=== PATIENT | female | born 1965 | race Caucasian/White ===

== ENCOUNTER 2018-02-05 06:37 | Day surgery (SDC) | payer OTHER ==
[~2018-02-05] VITALS: Ht 160 cm; Wt 79.5 kg
[~2018-02-05 06:37] MED LIST: SODIUM CHLORIDE 0.9% 1,000 ML IV ONE
[2018-02-05] MEDS ORDERED: LIDOCAINE 4% 50 ML SOLUTION TP ONE (06:38)
[2018-02-05] MEDS ORDERED: BENZOCAINE 20% 50 MCG/SPRAY 57 GM TP ONE (06:38)
[2018-02-05] MEDS ORDERED: LIDOCAINE 2% 30 ML JELLY TP ONE (06:38)
[2018-02-05] MEDS ORDERED: ALBUTEROL SULFATE 2.5 MG/0.5 ML NEB SOLUTION NEB ONE (06:38)
[2018-02-05] MEDS ORDERED: ASCO-330 PO (07:11)
[2018-02-05] MEDS ORDERED: LORA10TA7 PO (07:11)
[2018-02-05] MEDS ORDERED: LISI-661 PO (07:11)
[2018-02-05] MEDS ORDERED: FLUT16H NASAL (07:11)
[2018-02-05] MEDS ORDERED: ALBU8.5H8 IH (07:11)
[2018-02-05] MEDS ORDERED: FERR-89 PO (07:11)
[2018-02-05] MEDS ORDERED: VITAD1000 PO (07:11)
[2018-02-05] MEDS ORDERED: MOME13HF IH (07:11)
[2018-02-05] MEDS ORDERED: MONT10TA21 PO (07:11)
[2018-02-05] MEDS ORDERED: MULT1TAB70 PO (07:11)
[2018-02-05] MEDS ORDERED: AZEL137S8 NASAL (07:11)
[2018-02-05] MEDS ORDERED: MIDAZOLAM HCL 2 MG/2 ML VIAL ONE (07:42)
[2018-02-05] MEDS ORDERED: FentaNYL CITRATE-PF 100 MCG/2 ML VIAL ONE (07:42)
[2018-02-05] MEDS ORDERED: MethylPREDNISolone SOD SUCC 125 MG/2 ML VIAL IVP ONE (09:00)
[2018-02-05] MEDS ORDERED: MethylPREDNISolone SOD SUCC 125 MG/2 ML VIAL ONE (09:23)
[2018-02-05] MEDS ORDERED: LISINOPRIL 10 MG TABLET PO ONE (10:00)
[2018-02-05] MEDS ORDERED: OXYGEN THERAPY IH SCH (20:00)
== END 2018-02-05 11:10 | disposition home or self-care (01) ==
LOC: SURGERY 06:37
PROVIDERS: ATTEND Internal Medicine Critical Care Medicine
DX: J38.4 Edema of larynx (principal); B37.0 Candidal stomatitis; J98.09 Other diseases of bronchus, not elsewhere classified; I10 Essential (primary) hypertension; J44.9 Chronic obstructive pulmonary disease, unspecified; F41.8 Other specified anxiety disorders; Z86.2 Personal history of diseases of the blood and blood-forming organs and certain disorders involving the immune mechanism; Z87.891 Personal history of nicotine dependence; Z90.89 Acquired absence of other organs; Z87.01 Personal history of pneumonia (recurrent); Z79.899 Other long term (current) drug therapy; Z88.8 Allergy status to other drugs, medicaments and biological substances; Z98.890 Other specified postprocedural states
CPT/HCPCS: 31623; 31624; 71045; 84703; 87015; 87070; 87205; 87206; 87220; 88108; 88312; 93005; J2250; J2930; J3010; J7030

== ENCOUNTER 2020-01-29 06:37 | Day surgery (SDC) | payer OTHER ==
[2020-01-27 14:06] LABS: COVID AG,FIA SOURCE NASOPHARYNGEAL
[~2020-01-29] VITALS: Ht 162.6 cm; Wt 82.7 kg
[~2020-01-29 06:37] MED LIST changes: +ALBU8.5H8 IH; +ASCO-330 PO; +AZEL137S8 NASAL; +CHOL100018 PO; +FERR-89 PO; +FLUT16H NASAL; +LISI-661 PO; +LORA10TA7 PO; +MOME13HF IH; +MONT-35 PO; +MULT-660 PO; +SODIUM CHLORIDE 0.9% 1,000 ML ONE
[2020-01-29] MEDS ORDERED: BENZOCAINE 20% 50 MCG/SPRAY 57 GM TP ONE (06:38)
[2020-01-29] MEDS ORDERED: LIDOCAINE 2% 30 ML JELLY TP ONE (06:38)
[2020-01-29] MEDS ORDERED: ALBUTEROL SULFATE 2.5 MG/0.5 ML NEB SOLUTION NEB ONE (06:38)
[2020-01-29] MEDS ORDERED: CEPH-582 PO (07:26)
[2020-01-29] MEDS ORDERED: DOXY75TA14 PO (07:26)
[2020-01-29] MEDS ORDERED: DILT60 PO (07:26)
[2020-01-29] MEDS ORDERED: PRED10 PO (07:26)
[2020-01-29] MEDS ORDERED: CETI-193 PO (07:26)
[2020-01-29] MEDS ORDERED: FentaNYL CITRATE-PF 100 MCG/2 ML VIAL ONE (08:03)
[2020-01-29] MEDS ORDERED: MIDAZOLAM HCL 2 MG/2 ML VIAL ONE (08:03)
[2020-01-29] MEDS ORDERED: MethylPREDNISolone SOD SUCC 125 MG/2 ML VIAL IVP ONE (09:00)
[2020-01-29] MEDS ORDERED: MethylPREDNISolone SOD SUCC 125 MG/2 ML VIAL ONE (09:16)
== END 2020-01-29 11:10 | disposition home or self-care (01) ==
LOC: SURGERY 06:37
PROVIDERS: ATTEND Internal Medicine Critical Care Medicine
DX: J38.4 Edema of larynx (principal); B37.0 Candidal stomatitis; I10 Essential (primary) hypertension; J44.9 Chronic obstructive pulmonary disease, unspecified; Z98.890 Other specified postprocedural states; Z20.828 Contact with and (suspected) exposure to other viral communicable diseases
CPT/HCPCS: 31623; 31624; 71045; 87015; 87070; 87101; 87205; 87206; 87220; 87426; 88108; C9803; J2250; J2930; J3010; J7030; J7613